=== PATIENT | female | born 1990 | race Hispanic/Latino ===

== ENCOUNTER 2022-07-28 11:27 | Emergency (ER) | payer SELFPAY ==
[2022-07-28 11:38] VITALS: BP 140/76; PULSE 139; RESP 16; TEMP 39; O2SAT 99
[2022-07-28 11:55] VITALS: BP 140/76; PULSE 139; RESP 16; TEMP 39; O2SAT 99
--- NOTE | 2022-07-28 11:56 | ED.URI ---
HPI - URI/Sore Throat General Chief Complaint: Upper Respiratory Infection Stated Complaint: Sore Throat, Multiple Complaints Time Seen by Provider: 07/28/22 11:56 History of Present Illness HPI Narrative: 32 y/o female presented for c/o sore throat, body aches, shaky feeling and chills since yesterday. Endorses painful swallow. Not taking anything for symptoms due to pain with swallowing. Denies sick contacts. Denies difficulty swallowing secretions, shortness of breath, wheezing, nausea, vomiting or diarrhea. Related Data Allergies Allergy/AdvReac Type Severity Reaction Status Date / Time No Known Allergies Allergy Unverified 07/13/22 15:22 Review of Systems Review of Systems: CONSTITUTIONAL: Reports body aches, fever, chills, or sweats. EYES: Denies visual changes, redness, or discharge. ENT: Denies rhinorrhea, congestion, or otalgia. CARDIOVASCULAR: Denies chest pain, palpitations, or edema. RESPIRATORY: Denies dyspnea. GASTROINTESTINAL: Denies abdominal pain, nausea, vomiting, or diarrhea. SKIN: Denies rash, itching, or wounds. MUSCULOSKELETAL: Denies back pain, joint pain NEUROLOGIC: Denies headache [facility] Past Medical History Medical History (Updated 07/28/22 @ 12:06 by Anna Gamble, WO[employer]) No pertinent past medical history Exam Narrative: GENERAL: Ill-appearing, nontoxic no acute distress. EYES: conjunctivae clear ENT: Mucous membranes moist. TMs pearly carrillo with normal light reflex bilaterally; no tragal tenderness. Oropharynx erythematous without lesions. Tonsils enlarged 3+ without exudate. No drooling, no hoarseness, no trismus, uvula midline. No tripod positioning, hot potato voice, or soft palate swelling. NECK: Supple. bilateral anterior and posterior cervical lymphadenopathy CHEST: Clear to auscultation, breath sounds equal. No respiratory distress, speaks in full sentences. HEART: Regular rate and rhythm. No murmur heard. SKIN: Warm, dry, no rash. NEURO: Alert and oriented x3. Course Course Emergency Course: Patient is aware of diagnosis, understands and agrees to treatment plan. Anticipatory guidance given. Patient agrees to follow-up as directed and is aware of reasons to seek care at the emergency department. Portions of this record may have been created with voice recognition software Level of Care: Express Care Visit Vital Signs Vital signs: Vital Signs Temperature 102.2 F H 07/28/22 11:38 Pulse Rate 139 H 07/28/22 11:38 Respiratory Rate 16 07/28/22 11:38 Blood Pressure 140/76 07/28/22 11:38 Pulse Oximetry 99 07/28/22 11:38 Oxygen Delivery Room Air 07/28/22 11:38 Temperature 102.2 F H 07/28/22 11:55 Pulse Rate 139 H 07/28/22 11:55 Respiratory Rate 16 07/28/22 11:55 Blood Pressure 140/76 07/28/22 11:55 Pulse Oximetry 99 07/28/22 11:55 Oxygen Delivery Room Air 07/28/22 11:55 MDM - URI/Sore Throat MDM Narrative Medical decision making narrative: Neg covid and flu. POS strep result reviewed with pt. Advise supportive treatments. Patient is appropriate for outpatient treatment and follow-up. Differential Diagnosis Differential diagnosis: Likely upper respiratory infection, viral infection and pharyngitis Lab Data Labs: Strep Screen Positive Group A Strep *(Reference Range: Negative)* Strep Screen Positive Group A Strep *(Reference Range: Negative)* Discharge Plan Discharge Clinical Impression: Strep pharyngitis Patient Disposition: Home, Self-Care Condition: Stable Instructions: Antibiotic Form, Strep Throat (ED) Additional Instructions: - Take the antibiotic as directed. Fever and sore throat typically resolve within one to three days. Most patients can return to work after 12 to 24 hours of antibiotic therapy, provided you are fever free and otherwise well. -Eat and drink things that are easy to swallow
[2022-07-28] MEDS: ACETAMINOPHEN 500 MG TABLET 1000 MG PO (11:58)
== END 2022-07-28 12:08 | disposition home or self-care (01) ==
PROVIDERS: Emergency Provider Nurse Practitioner Family
DX: J02.0 Streptococcal pharyngitis (principal); Z20.822 Contact with and (suspected) exposure to COVID-19
CPT/HCPCS: 87426; 87804; 87880; 99213; A9270; C9803; G0463

== ENCOUNTER 2022-08-29 11:50 | Emergency (ER) | payer SELFPAY ==
[2022-08-29] VITALS (11 sets, daily range): BP systolic 120–155; BP diastolic 62–95; PULSE 118–140; RESP 17–28; TEMP 37.7–38.8; O2SAT 95–100
--- NOTE | ~2022-08-29 | XR_ITS ---
XR chest 1V portable DATE: 08/29/2022 13:08 INDICATION: Cough, fever TECHNIQUE: Portable upright AP chest on August 29, 2022 at 1303 hours COMPARISON: None FINDINGS: Normal heart size. No hilar or mediastinal enlargement. No pulmonary infiltrate or consolid ation, pleural effusion or pulmonary vascular congestion or pneumothorax. IMPRESSION: No active cardiopulmonary disease Reviewed, dictated and finalized at location B.
--- NOTE | ~2022-08-29 | CT_ITS ---
CT scan of the Neck Technique: 2.5 mm axial scans were obtained through the neck after intravenous administration of 75 c c Omnipaque 350. Coronal and sagittal reconstructions of the neck were obtained. Dose reduction techn ique was used on this scan by utilizing automated exposure control and iterative reconstruction techn ique. The dose-length product (DLP) was 582.90 mGy-cm. Clinical History: Sore throat, peritonsillar abscess Findings: Mildly prominent bilateral cervical lymph nodes are noted, predominantly at level 2. Parapharyngeal f at preserved bilaterally. No peritonsillar abscess. Suspected tonsillitis, especially left side. Para pharyngeal spaces appear normal bilaterally. The parotid and submandibular glands appear normal. The pharyngeal mucosal spaces appear normal. No soft tissue masses are seen in the neck. The thyroid gland appears normal. Images of the lung apices reveal no abnormalities. Impression: Suspected tonsillitis, especially left palatine tonsil. No definite peritonsillar abscess seen. Probable reactive cervical lymphadenopathy/lymphadenitis. Reviewed, dictated and finalized at [facility]. Impression: Suspected tonsillitis, especially left palatine tonsil. No definite peritonsill ar abscess seen. Probable reactive cervical lymphadenopathy/lymphadenitis.
--- NOTE | 2022-08-29 12:39 | ED.GENADULT ---
HPI - General Adult General Chief complaint: Upper Respiratory Infection <Rickey Spencer PA-C - Last Filed: 08/29/22 16:38> Stated complaint: body aches, fever, sore throat, headache <Rickey Spencer PA-C - Last Filed: 08/29/22 16:38> Time Seen by Provider: 08/29/22 12:16 <Rickey Spencer PA-C - Last Filed: 08/29/22 16:38> Source: patient <Rickey Spencer PA-C - Last Filed: 08/29/22 16:38> Mode of arrival: ambulatory <GILLIAN Manzo Last Filed: 08/29/22 16:38> Limitations: no limitations <Rickey Spencer PA-C - Last Filed: 08/29/22 16:38> History of Present Illness HPI narrative: This is a 32-year-old female presents the ED with chief complaint of sore throat x2 days. Associated symptoms of fever, headache, body aches, cough. She states this all started with a series of chills that started 3 nights ago. She also notes that her son was diagnosed with strep throat 2 weeks ago. She has been taking ibuprofen which helps somewhat with the fevers but very short-term. She has also been taking amoxicillin twice daily that her mother sent from [place]. Patient presents today because she feels like her throat is more swollen and she is having trouble controlling the fevers. Reports right-sided swelling and pain regarding the throat.. Denies abdominal pain, N/V, diarrhea, LOC, chest pain. Denies trismus or drooling. <Rickey Spencer PA-C - Last Filed: 08/29/22 16:38> Related Data Allergies/adverse reactions: Allergies Allergy/AdvReac Type Severity Reaction Status Date / Time No Known Allergies Allergy Unverified 07/13/22 15:22 <Rickey Spencer PA-C - Last Filed: 08/29/22 16:38> Review of Systems Review of Systems: CONSTITUTIONAL: Denies fever, chills, or sweats. EYES: Denies visual changes, redness, or discharge. ENT: See HPI CARDIOVASCULAR: Denies chest pain, palpitations, or edema. RESPIRATORY: Denies cough or dyspnea. GASTROINTESTINAL: Denies abdominal pain, nausea, vomiting, or diarrhea. GENITOURINARY: Denies dysuria or hematuria. SKIN: Denies rash or itching. MUSCULOSKELETAL: Denies back pain, joint pain, or myalgia. NEUROLOGIC: Denies headache, numbness, dizziness, or weakness. PSYCHIATRIC: Denies anxiety or depression. <Rickey Spencer PA-C - Last Filed: 08/29/22 16:38> [facility] Past Medical History Medical History: Medical History (Updated 08/29/22 @ 15:51 by Rickey Spencer PA-C) No pertinent past medical history <Rickey Spencer PA-C - Last Filed: 08/29/22 16:38> Exam Narrative: GENERAL: Well-appearing, well-nourished, and in no acute distress. HEAD: Normocephalic, atraumatic. EYES: PERRLA and EOMI. ENT: Nares clear, no rhinorrhea or epistaxis. Mucous membranes moist. 2+ tonsillar hypertrophy bilaterally with exudative lesions bilaterally, worse on the right. Uvula only slightly deviated to the left. No trismus or drooling. Floor of the mouth is intact. NECK: Supple. No adenopathy or masses. CHEST: No respiratory distress. Clear to auscultation. No wheezes rales or rhonchi HEART: Regular rate and rhythm. No murmur heard. Normal peripheral pulses. ABDOMEN: Soft, nontender, nondistended, normal active bowel sounds. EXTREMITIES: Normal range of motion. No edema. SKIN: Warm, dry, no rash. NEURO: Alert and oriented x3. No focal deficits. PSYCH: Normal mood and affect. <Rickey Spencer PA-C - Last Filed: 08/29/22 16:38> Course [facility]/PA Physician Supervision This visit was performed by both a physician and an APC. I performed all aspects of the MDM as documented. <Anthony cMkoy MD - Last Filed: 08/29/22 19:25> Vital Signs Vital signs: Vital Signs Temperature 100.9 F H 08/29/22 11:54 Pulse Rate 140 H 08/29/22 11:54 Respiratory Rate 19 08/29/22 11:54 Blood Pressure 140/82 08/29/22 11:54 Pulse Oximetry 100 08/29/22 11:54 Oxygen Delivery Room Air 08/29/22 11:54 Temperature 100 F H 08/29/22 16:20 Pulse Rate 118 H 08/13
[2022-08-29 12:45] LABS: Strep Group A RT-PCR DETECTED (Negative)
[2022-08-29 12:56] LABS: Influenza A QL RT-PCR Negative (Negative); Influenza B QL RT-PCR Negative (Negative); SARS-CoV-2 RNA PCR Negative
[2022-08-29 13:00] LABS: Basophils Percent Auto 0.3 % (0.2-1.2); Eosinophils Percent Auto 0.2 % (0-4.4); Hematocrit 39.8 % (37.0-47.0); Immature Granulocyte Absolute 0.03 K/mm3 (0.00-0.031); Immature Granulocyte Percent A 0.3 % (0-0.5); Lymphocytes Absolute Auto 1.21 K/mm3 (0.9-3.2); Lymphocytes Percent Auto 10.8 % (18.3-44.2); Mean Corpuscular HGB Conc 32.7 g/dl (32-36); Mean Corpuscular Hemoglobin 27.3 pg (26-34); Mean Corpuscular Volume 83.4 fl (80-100); Mean Platelet Volume 10.2 fl (7.4-10.4); Monocytes Absolute Auto 1.1 K/mm3 (0.1-0.6); Neutrophils Absolute Auto 8.8 K/mm3 (1.3-6.7); Neutrophils Percent Auto 78.4 % (45.5-73.1); Platelet Count Result 296 k/mm3 (150-375); Red Blood Count 4.77 M/mm3 (4.2-5.4); Red Cell Distribution Width 14.2 % (11.5-14.5); White Blood Count 11.2 K/mm3 (4.5-10.0)
[2022-08-29 13:06] LABS: Lactic Acid Reflex 0.9 mmol/L (0.7-2.0)
[2022-08-29 13:08] LABS: Alanine Aminotransferase 26 U/L (6-35); Albumin Level 4.5 g/dL (3.5-5.1); Alkaline Phosphatase 84 U/L (38-126); Anion Gap 10 mmol/L (8-16); Aspartate Amino Transferase 23 U/L (14-36); Bilirubin,Total 0.7 mg/dL (0.2-1.3); Blood Urea Nitrogen 12 mg/dL (7-17); CRP 7.6 mg/dL (<1.0); Calcium 8.7 mg/dL (8.4-10.2); Carbon Dioxide 27 mmol/L (22-30); Chloride 100 mmol/L (98-107); Estimated Glomerular Filt Rate > 60; Glucose 110 mg/dL (65-110); Potassium 3.9 mmol/L (3.4-5.0); Sodium 137 mmol/L (137-145)
[2022-08-29 14:06] LABS: Pregnancy On Board Control Positive; Urine Pregnancy Test Negative
[2022-08-29] MEDS: CLINDAMYCIN 450 MG in DEXTROSE 5% IN WATER 50 ML 106 MG IVPB (14:15)
[2022-08-29] MEDS: SODIUM CHLORIDE 0.9% IV 1,000 ML 999 ML IV CONT (14:45)
[2022-08-29] MEDS: KETOROLAC 30 MG/ML VIAL (*BKC) IV PUSH (15:33)
== END 2022-08-29 16:20 | disposition home or self-care (01) ==
PROVIDERS: Emergency Medicine; Emergency Provider Physician Assistant
DX: J02.0 Streptococcal pharyngitis (principal); Z20.822 Contact with and (suspected) exposure to COVID-19
CPT/HCPCS: 36415; 70491; 71045; 80053; 81025; 83605; 85025; 86140; 87040; 87636; 87651; 96361; 96365; 96375; 99284; J1885; J7030; Q9967

== ENCOUNTER 2024-10-25 10:01 | Outpatient (CLI) | payer OTHER, SELFPAY ==
--- NOTE | ~2024-10-25 | US_ITS ---
US soft tissue abdomen 10/25/2024 10:19 Indication: Palpable nodules Procedure: High-resolution ultrasound of the soft tissues of the right upper abdominal wall Comparison: No prior studies for comparison. Findings: Normal heterogeneous soft tissues without discrete solid or cystic mass. Impression: 1: Normal soft tissue ultrasound of the right upper abdomen in the area of palpable concern. No discr ete mass. Reviewed, dictated and finalized at location B. Impression: 1: Normal soft tissue ultrasound of the right upper abdomen in the area of palp able concern. No discrete mass.
== END 2024-10-25 10:02 | disposition home or self-care (01) ==
PROVIDERS: PCP Physician Assistant; Visit Provider Physician Assistant
DX: R22.2 Localized swelling, mass and lump, trunk (principal)
CPT/HCPCS: 76705